=== PATIENT | female | born 1990 | race Caucasian/White ===

== ENCOUNTER 2024-04-01 08:59 | Inpatient (IN) | payer BC ==
[2024-04-01 09:17] VITALS: BMI 49.8
[2024-04-01] MEDS ORDERED: Ondansetron ODT 4 MG TAB PO PRN (09:45)
[2024-04-01] MEDS ORDERED: VANCOMYCIN IVPB PRN (09:51)
[2024-04-01] MEDS: cefTRIAXone\\ROCEPHIN 2 GM in Sodium Chloride 0.9% 100 ML IVPB SCH (11:07)
[2024-04-01] MEDS: Vancomycin (BATCH) 2.5 GM in Premix 1 BAG IVPB SCH (12:20)
[2024-04-01] MEDS: Ibuprofen 200 MG TAB PO PRN (12:27)
[2024-04-01 12:53] LABS: HIV (1/2) Antibody/Antigen NONREACTIVE (NonReactive); HIV 1/2 INDEX 0.05 S/CO (<1.00)
[2024-04-01] MEDS: Acetaminophen 325 MG TAB PO PRN (18:01)
[2024-04-01] MEDS: Vancomycin (BATCH) 1.25 GM in Premix 1 BAG IVPB SCH (18:01)
[2024-04-01] MEDS: Ondansetron PF 4 MG/2 ML Vial IVP PRN (18:02)
[2024-04-01] MEDS: Albuterol 2.5 MG (3 mL) NEB NEB PRN (19:26)
[2024-04-01] MEDS: Doxepin HCl 25 MG CAP PO SCH (20:03)
[2024-04-01] MEDS: OLANZapine 5 MG TAB PO SCH (20:03)
[2024-04-01] MEDS: Clotrimazole 2% 3 Day Vag Cr 22.2 GM TUBE VAG SCH (20:07)
[2024-04-01] MEDS: Nystatin Powder 15 GM BOT TOP SCH (20:20)
[2024-04-01] MEDS: Famotidine 20 MG TAB PO SCH (20:33)
[2024-04-01] MEDS ORDERED: Vancomycin 1 GM in Premix 1 BAG IVPB SCH (21:00)
[2024-04-01] MEDS: HYDROcodone/Acetaminophen 7.5/325 mg Tablet PO PRN (22:12)
[2024-04-02 07:51] LABS: #Basophils Less than 0.03 10x3/uL (0.0-0.2); #Eosinophils Less than 0.03 10x3/uL (0.0-0.7); %Lymphocytes 21.9 % (21.0-51.0); %Monocytes 15.6 % (0.0-10.0); %Neutrophils 61.4 % (42.0-75.0); Hematocrit 30.6 % (36.0-47.0); Mean Corpuscular HGB CONC 29.4 g/dL (32.0-36.0); Mean Corpuscular Hemoglobin 23.6 pg (27.0-31.0); Mean Corpuscular Volume 80.1 fL (78.0-98.0); Platelet Count 95 10x3/uL (130-400); RBC Distribution Width 18.7 % (11.5-14.5); Red Blood Cell (RBC) Count 3.82 mill/uL (4.20-5.40)
[2024-04-02 07:52] LABS: Anion Gap 14 mmol/L (10-20); BUN (Urea Nitrogen) 7 mg/dL (7.0-18.7); Calc. Creatinine Clearance 227 mL/min (70-130); Calcium 7.7 mg/dL (7.8-10.44); Carbon Dioxide 23 mmol/L (22-29); Chloride 108 mmol/L (98-107); Estimated GFR 110; Glucose 139 mg/dL (70-105); Iron 23 ug/dL (50-170); Iron Binding Capacity, Total 221 mcg/dL (265-497); Potassium 3.7 mmol/L (3.5-5.1); Sodium 141 mmol/L (136-145)
[2024-04-02 07:57] LABS: Vancomycin, Random 30.3 ug/mL (See Comment)
[2024-04-02] MEDS: Enoxaparin 40 MG (0.4 mL) SYRINGE SC SCH (09:18)
[2024-04-02 14:38] LABS: HBCM Index 0.16 S/CO (0-0.79); HBsAg Index 0.34 S/CO (0-0.99); Hep A IgM AB NONREACTIVE (NonReactive); Hep A IgM S/CO 0.13 S/CO (0-0.79); Hep B Surf Ag NONREACTIVE S/CO (NonReactive); Hep C IgG Ab NONREACTIVE S/CO (NonReactive); Hep C Index 0.07 S/CO (0-0.79); Hepatitis B Core IgM Abs NONREACTIVE S/CO (NonReactive)
[2024-04-02 14:45] LABS: Vitamin B12 877 pg/mL (211-911)
[2024-04-02] MEDS: Lurasidone 20 MG TABLET PO SCH (20:29)
[2024-04-03] MEDS: Senokot S 8.6-50 MG TAB PO PRN (08:47)
[2024-04-03] MEDS: Citalopram 20 MG TAB PO SCH (10:05)
[2024-04-03] MEDS: Loratadine 10 MG TAB PO SCH (10:05)
[2024-04-03] MEDS: Furosemide 40 MG (4 mL) VIAL SLOW IVP SCH (13:23)
[2024-04-03] MEDS: traMADol HCl 50 MG TAB PO PRN (16:15)
[2024-04-03 17:33] VITALS: BMI 49.8
[2024-04-03] MEDS: busPIRone HCl 10 MG TAB PO PRN (17:46)
[2024-04-04] MEDS: HYDROcodone/Acetaminophen 7.5/325 mg Tablet PO PRN (05:11)
[2024-04-04 06:09] LABS: Anion Gap 12 mmol/L (10-20); BUN (Urea Nitrogen) 5 mg/dL (7.0-18.7); Calc. Creatinine Clearance 233 mL/min (70-130); Calcium 8.3 mg/dL (7.8-10.44); Carbon Dioxide 29 mmol/L (22-29); Chloride 104 mmol/L (98-107); Estimated GFR 114; Glucose 104 mg/dL (70-105); Potassium 3.7 mmol/L (3.5-5.1); Sodium 141 mmol/L (136-145); Vancomycin, Random 17.4 ug/mL (See Comment)
[2024-04-04 07:23] LABS: #Basophils Less than 0.03 10x3/uL (0.0-0.2); #Eosinophils Less than 0.03 10x3/uL (0.0-0.7); %Lymphocytes 18.2 % (21.0-51.0); %Monocytes 17.9 % (0.0-10.0); %Neutrophils 62.8 % (42.0-75.0); Hematocrit 32.7 % (36.0-47.0); Hemoglobin 9.7 g/dL (12.0-16.0); Mean Corpuscular HGB CONC 29.7 g/dL (32.0-36.0); Mean Corpuscular Hemoglobin 23.9 pg (27.0-31.0); Mean Corpuscular Volume 80.5 fL (78.0-98.0); Platelet Count 106 10x3/uL (130-400); RBC Distribution Width 18.6 % (11.5-14.5); Red Blood Cell (RBC) Count 4.06 mill/uL (4.20-5.40)
[2024-04-04] MEDS: Loratadine 10 MG TAB PO SCH (08:58)
[2024-04-04] MEDS: Citalopram 20 MG TAB PO SCH (08:58)
[2024-04-04] MEDS ORDERED: Bisacodyl 10 MG SUPP PR PRN (17:09)
[2024-04-04] MEDS: CEFAZOLIN 2 GM in Sodium Chloride 0.9% 100 ML IVPB SCH (17:35)
[2024-04-04] MEDS: Docusate 100 MG CAP PO SCH (20:54)
[2024-04-05] MEDS: Furosemide 40 MG (4 mL) VIAL SLOW IVP SCH (09:36)
[2024-04-05 14:12] LABS: Parvovirus B19 IgG ABS 3.4 index (0.0-0.8); Parvovirus B19 IgM ABS 0.2 index (0.0-0.8)
[2024-04-05 15:34] LABS: ALT (SGPT) 26 U/L (8-55); AST (SGOT) 39 U/L (5-34); Albumin 2.9 g/dL (3.5-5.0); Alkaline Phosphatase 127 U/L (40-110); Bilirubin, Direct 0.2 mg/dL (0.1-0.3); Bilirubin, Total 0.6 mg/dL (0.2-1.2)
[2024-04-07 16:17] LABS: Methylmalonic Acid 325 nmol/L (0-378)
[2024-04-08 06:16] LABS: #Basophils Less than 0.03 10x3/uL (0.0-0.2); #Eosinophils Less than 0.03 10x3/uL (0.0-0.7); %Lymphocytes 27.9 % (21.0-51.0); %Monocytes 16.8 % (0.0-10.0); %Neutrophils 53.5 % (42.0-75.0); Hematocrit 34.2 % (36.0-47.0); Hemoglobin 9.9 g/dL (12.0-16.0); Mean Corpuscular HGB CONC 28.9 g/dL (32.0-36.0); Mean Corpuscular Hemoglobin 23.2 pg (27.0-31.0); Mean Corpuscular Volume 80.1 fL (78.0-98.0); Mean Platelet Volume 8.9 fL (7.4-10.4); Platelet Count 114 10x3/uL (130-400); RBC Distribution Width 18.2 % (11.5-14.5); Red Blood Cell (RBC) Count 4.27 mill/uL (4.20-5.40)
[2024-04-08 06:22] LABS: Anion Gap 11 mmol/L (10-20); BUN (Urea Nitrogen) 11 mg/dL (7.0-18.7); Calc. Creatinine Clearance 224 mL/min (70-130); Carbon Dioxide 26 mmol/L (22-29); Chloride 105 mmol/L (98-107); Estimated GFR 108; Glucose 97 mg/dL (70-105); Magnesium 1.9 mg/dL (1.6-2.6); Potassium 4.2 mmol/L (3.5-5.1); Sodium 138 mmol/L (136-145)
[2024-04-08] MEDS ORDERED: Polyethylene Glycol 3350 17 GM Packet PO PRN (09:13)
[2024-04-08] MEDS: Cefadroxil Hydrate 500 mg/5 ml Suspenion PO SCH (10:14)
[2024-04-08] MEDS: Colestipol 1 GM TAB PO SCH (21:18)
[2024-04-08] MEDS: Mupirocin 2% Ointment 22 GM Tube TOP SCH (21:20)
[2024-04-09 05:52] LABS: #Basophils Less than 0.03 10x3/uL (0.0-0.2); #Eosinophils Less than 0.03 10x3/uL (0.0-0.7); %Basophils 0.3 % (0.0-1.0); %Lymphocytes 31.8 % (21.0-51.0); %Monocytes 18.5 % (0.0-10.0); Hematocrit 34.1 % (36.0-47.0); Mean Corpuscular HGB CONC 29.3 g/dL (32.0-36.0); Mean Corpuscular Hemoglobin 23.2 pg (27.0-31.0); Mean Corpuscular Volume 79.1 fL (78.0-98.0); Mean Platelet Volume 9.1 fL (7.4-10.4); Platelet Count 112 10x3/uL (130-400); RBC Distribution Width 18.1 % (11.5-14.5); Red Blood Cell (RBC) Count 4.31 mill/uL (4.20-5.40)
[2024-04-09 06:07] LABS: Anion Gap 12 mmol/L (10-20); BUN (Urea Nitrogen) 12 mg/dL (7.0-18.7); Calc. Creatinine Clearance 236 mL/min (70-130); Calcium 8.6 mg/dL (7.8-10.44); Carbon Dioxide 22 mmol/L (22-29); Chloride 108 mmol/L (98-107); Estimated GFR 116; Glucose 107 mg/dL (70-105); Sodium 138 mmol/L (136-145)
[2024-04-09 07:29] VITALS: BP 132/85; TEMP 98
[2024-04-09] MEDS: Ferrous Sulfate 325 MG TAB PO SCH (08:37)
[2024-04-09] MEDS: Citalopram 20 MG TAB PO SCH (08:38)
[2024-04-09] MEDS: Docusate 100 MG CAP PO SCH (08:38)
[2024-04-09] MEDS ORDERED: FERROUS SULFATE 325 MG PO SCH (09:00)
== END 2024-04-09 11:45 | disposition home or self-care (01) | DRG 300 ==
LOC: T4-B 08:59
PROVIDERS: ADMIT Internal Medicine; ATTEND Family Medicine
DX: I83.218 Varicose veins of right lower extremity with both ulcer of other part of lower extremity and inflammation (principal); D61.818 Other pancytopenia; L03.115 Cellulitis of right lower limb; Z68.42 Body mass index [BMI] 45.0-49.9, adult; L97.909 Non-pressure chronic ulcer of unspecified part of unspecified lower leg with unspecified severity; F33.1 Major depressive disorder, recurrent, moderate; L03.116 Cellulitis of left lower limb; J45.909 Unspecified asthma, uncomplicated; I83.228 Varicose veins of left lower extremity with both ulcer of other part of lower extremity and inflammation; G43.909 Migraine, unspecified, not intractable, without status migrainosus; F41.9 Anxiety disorder, unspecified; E66.01 Morbid (severe) obesity due to excess calories; R59.0 Localized enlarged lymph nodes; I95.1 Orthostatic hypotension; K76.0 Fatty (change of) liver, not elsewhere classified; Z88.8 Allergy status to other drugs, medicaments and biological substances; Z88.2 Allergy status to sulfonamides; Z91.018 Allergy to other foods; Z90.49 Acquired absence of other specified parts of digestive tract; Z82.49 Family history of ischemic heart disease and other diseases of the circulatory system; Z88.5 Allergy status to narcotic agent; T43.211 Poisoning by selective serotonin and norepinephrine reuptake inhibitors, accidental (unintentional)
CPT/HCPCS: 36415; 36416; 71045; 71275; 76700; 80048; 80053; 80074; 80076; 80202; 82607; 82728; 83540; 83550; 83605; 83735; 83880; 83921; 84484; 85025; 85379; 86141; 86747; 87040; 87070; 87077; 87081; 87186; 87205; 87389; 88184; 93005; 93010; 93970; 94640; 96374; 96375; 97139; J0696; J1650; J1940; J2405; J3370; J7030; J7611; Q9967